=== PATIENT | male | born 1995 ===

== ENCOUNTER 2017-05-10 19:04 | Emergency (ER) | payer OTHER ==
[2017-05-10 19:04] VITALS: BMI 32.8
--- NOTE | 2017-05-10 20:37 | ED PDOC ---
HPI: CCC, URI, Sore Throat Time Seen by Provider: 05/10/17 20:29 Chief Complaint (Nursing): Flu-like Symptoms Chief Complaint (Provider): Flu-like Symptoms History Per: Patient History/Exam Limitations: no limitations Onset/Duration Of Symptoms: Hrs (x48) Current Symptoms Are (Timing): Still Present Additional Complaint(s): 21 y/o male presents to the emergency department complaining of fever associated with cough, congestion, sore throat and back pain, onset Monday night 05/08/17. Took Dayquil yesterday without relief. Denies any nausea, vomiting, or diarrhea. PMD: Provider TBD Past Medical History Reviewed: Historical Data, Nursing Documentation, Vital Signs Vital Signs: Last Vital Signs Temp 101.1 F H 05/10/17 19:48 Pulse 101 H 05/10/17 19:48 Resp 16 05/10/17 19:48 BP 130/64 05/10/17 19:48 Pulse Ox 98 05/10/17 22:08 - Family History Family History: States: Unknown Family Hx - Immunization History Hx Tetanus Toxoid Vaccination: No Hx Influenza Vaccination: No Hx Pneumococcal Vaccination: No - Home Medications Home Medications: Ambulatory Orders Medication Instructions Recorded Acetaminophen [Tylenol 325mg tab] 2 tab PO Q4H #30 tab 04/21/17 Ondansetron ODT [Zofran ODT] 4 mg PO Q8 #12 odt 04/21/17 Acetaminophen [Acetaminophen Extra 2 tab PO Q6 PRN #24 tablet 05/10/17 Strength] Ibuprofen [Motrin] 600 mg PO Q8 PRN #21 tab 05/10/17 Pseudoephedrine [Sudafed Tab] 60 mg PO Q6 PRN #24 tab 05/10/17 - Allergies Allergies/Adverse Reactions: Allergies Allergy/AdvReac Type Severity Reaction Status Date / Time No Known Allergies Allergy Verified 05/10/17 19:48 Review of Systems ROS Statement: Except As Marked, All Systems Reviewed And Found Negative Constitutional: Positive for: Fever ENT: Positive for: Nose Congestion, Throat Pain Respiratory: Positive for: Cough. Negative for: Shortness of Breath Gastrointestinal: Negative for: Nausea, Vomiting, Diarrhea Musculoskeletal: Positive for: Back Pain Physical Exam - Reviewed Nursing Documentation Reviewed: Yes Vital Signs Reviewed: Yes - Physical Exam Appears: Positive for: Non-toxic, No Acute Distress Head Exam: Positive for: ATRAUMATIC, NORMAL INSPECTION, NORMOCEPHALIC Skin: Positive for: Normal Color, Warm, Dry Eye Exam: Positive for: EOMI, Normal appearance, PERRL ENT: Positive for: Nasal Congestion (moderate). Negative for: Pharyngeal Erythema, Tonsillar Exudate Neck: Positive for: Normal, Supple Cardiovascular/Chest: Positive for: Regular Rate, Rhythm Respiratory: Positive for: Normal Breath Sounds. Negative for: Rhonchi, Wheezing, Respiratory Distress Gastrointestinal/Abdominal: Positive for: Normal Exam, Soft. Negative for: Tenderness Extremity: Positive for: Normal ROM Neurologic/Psych: Positive for: Alert, Oriented. Negative for: Motor/Sensory Deficits - ECG O2 Sat by Pulse Oximetry: 98 (RA) Pulse Ox Interpretation: Normal - Progress ED Course And Treament: FLU A POS STREP A NEG TAMIFLU 75 MG X 1 DOSE ORDERED MOTRIN 600MG X 1 DOSE Medical Decision Making Medical Decision Making: Initial Impression: 21 y/o male with flu-like symptoms Time: 20:28 Initial Plan: --Influenza A B --Rapid strep test --Tylenol 975 mg PO Scribe Attestation: Documented by Afshan Mooney, acting as a scribe for Alcides Arellano PA-C Provider Scribe Attestation: All medical record entries made by the Scribe were at my direction and personally dictated by me. I have reviewed the chart and agree that the record accurately reflects my personal performance of the history, physical exam, medical decision making, and the department course for this patient. I have also personally directed, reviewed, and agree with the discharge instructions and disposition. Disposition - Clinical Impression Clinical Impression: Influenza - Patient ED Disposition Is Patient to be Admitted: No - Disposition Referrals: [facility] [Outside] Disposition: Routine/Home Disposition Time: 22:28 Condition: FAIR Prescriptions: Acetaminophen [Acetaminophen Extra Strength] 2 tab PO Q6 PRN #24 tablet PRN Reason: Fever >100.4 F Ibuprofen [Motrin] 600 mg PO Q8 PRN #21 tab PRN Reason: Pain, Moderate (4-7) Pseudoephedrine [Sudafed Tab] 60 mg PO Q6 PRN #24 tab PRN Reason: Nasal Congestion Instructions: Influenza (ED) Forms: [facility] ED School/Work Excuse, [facility] (Wolof) Print Language: ROMANIAN
[2017-05-10 22:46] VITALS: BP 128/70; PULSE 89; RESP 18; TEMP 98.7; O2SAT 99
== END 2017-05-10 22:46 | disposition home or self-care (01) ==
LOC: H.ER 19:04
DX: J11.1 Influenza due to unidentified influenza virus with other respiratory manifestations (principal)